=== PATIENT | male | born 1985 | race Two or more races ===

== ENCOUNTER 2021-08-27 06:49 | Inpatient (IN) | payer MEDICAID ==
[~2021-08-27] VITALS: Ht 170.2 cm; Wt 74.8 kg
--- NOTE | 2021-08-27 07:08 | NUR ---
PT IVONNE FROM [facility] C/O DIFFUSED ABDOMINAL PAIN X1 DAY -N/V/D. PT A/O, RR EVEN. PT CONNECTED TO MONITORS.
--- NOTE | 2021-08-27 07:09 | NUR ---
URINE SENT TO LAB
[2021-08-27 07:28] LABS: BASOPHILS % (AUTO) 0.2 % (0.0-2.0); EOSINOPHILS % (AUTO) 0.4 % (0.0-6.0); HEMATOCRIT 37 % (39-51); HEMOGLOBIN 12.4 g/dL (13.5-17.5); LYMPHOCYTES # (AUTO) 0.7 K/uL (0.8-4.8); LYMPHOCYTES % (AUTO) 12.9 % (20.0-44.0); MEAN CORPUSCULAR HGB CONC 34 g/dl (31.0-36.0); MEAN CORPUSCULAR VOLUME 93 fL (80-96); MONOCYTES # (AUTO) 0.3 K/uL (0.1-1.30); MONOCYTES % (AUTO) 5.9 % (2.0-12.0); NEUTROPHILS # (AUTO) 4.2 K/uL (1.8-8.9); NEUTROPHILS % (AUTO) 80.6 % (43.0-81.0); PLATELET COUNT (AUTO) 328 K/uL (150-450); RED BLOOD CELL COUNT(AUTO) 3.94 MIL/uL (4.5-6.0); WHITE BLOOD COUNT (AUTO) 5.2 K/uL (4.3-11.0)
[2021-08-27] MEDS ORDERED: IOHEXOL-300 100 ML VIAL IV ONE (07:29)
[2021-08-27] MEDS ORDERED: IV NS 0.9% 250 ML IV ONE (07:29)
[2021-08-27] MEDS ORDERED: CT SWABBABLE VALVE TRANS SET 1 EA INFUS.SET MC ONE (07:29)
[2021-08-27] MEDS ORDERED: MORPHINE SULFATE INJ 2 MG/ML DISP.SYRIN IV ONE (07:30)
[2021-08-27] MEDS ORDERED: IV NS 0.9% 1,000 ML BAG IV ONE (07:30)
[2021-08-27] MEDS ORDERED: MORPHINE SULFATE INJ 4 MG/ML DISP.SYRIN ONE (07:31)
[2021-08-27 07:33] LABS: CALCIUM, SERUM 8.6 mg/dL (8.5-10.1); CREATININE 0.7 mg/dL (0.6-1.3); POTASSIUM 3.7 mmol/L (3.5-5.1)
[2021-08-27 07:39] LABS: ALBUMIN 3.6 g/dL (3.4-5.0); BILIRUBIN,DIRECT 0.2 mg/dL (0.0-0.2); BILIRUBIN,TOTAL 0.8 mg/dL (0.2-1.0); TOTAL PROTEIN, SERUM 7.2 g/dL (6.4-8.2)
[2021-08-27 07:45] LABS: BILIRUBIN,URINE NEGATIVE (NEGATIVE); LEUKOCYTE ESTERASE ,URINE NEGATIVE (NEGATIVE); NITRITE, URINE NEGATIVE (NEGATIVE); PROTEIN,URINE NEGATIVE (NEGATIVE); UGLUCOSE NEGATIVE (NEGATIVE); UROBILINOGEN,URINE 0.2 EU/dL (0.2)
[2021-08-27 07:53] LABS: COLOR,URINE STRAW (YELLOW)
[2021-08-27 08:19] LABS: BACTERIA,URINE None seen /HPF (None Seen); RBC,URINE 0-2 /HPF (0-2); SQUAMOUS EPITHELIAL CELL,UR None Seen /HPF (None Seen); URINE AMORPHOUS PHOSPHATES Moderate /HPF (None Seen); WBC,URINE 0-2 /HPF (0-3)
--- NOTE | 2021-08-27 08:30 | NUR ---
CALLED DR. ANDRADE [phone] SOLIS.
--- NOTE | 2021-08-27 08:35 | NUR ---
MOVE SHEET SUBMITTED AND CALLED FOR MS BED.
--- NOTE | 2021-08-27 08:38 | NUR ---
AT BEDSIDE FOR EVAL.
--- NOTE | 2021-08-27 08:43 | NUR ---
COVID SWAB DONE AND SENT TO LAB
[2021-08-27] MEDS ORDERED: CEFTRIAXONE 1GM BAG (ER ONLY) 50 ML IV ONE (08:46)
[2021-08-27] MEDS ORDERED: METRONIDAZOLE 500MG/ NS 100ML 100 ML IV ONE (08:46)
--- NOTE | 2021-08-27 08:50 | NUR ---
NEGATIVE RAPID COVID TEST RESULT. CALL FROM LAB.
[2021-08-27] MEDS ORDERED: CEFTRIAXONE 1GM BAG (ER ONLY) 1 GM/50 ML PIGGYBACK IV ONE (09:00)
[2021-08-27] MEDS ORDERED: FLAGYL/NS RTU 500 MG/100 ML PIGGYBACK IV ONE (09:00)
--- NOTE | 2021-08-27 09:04 | NUR ---
[facility] CALLED [facility]NAGER PAGED.
--- NOTE | 2021-08-27 09:54 | NUR ---
GOT BED 320-2
--- NOTE | 2021-08-27 10:15 | NUR ---
CALLED [facility] AGAIN RHIA PAGED.
--- NOTE | 2021-08-27 10:56 | NUR ---
REPORT GIVEN TO PIEDAD BENNETT FOR MARIA D
[2021-08-27] MEDS ORDERED: ONDANSETRON HCL/PF 4 MG/2 ML VIAL IVP PRN (11:30)
[2021-08-27] MEDS ORDERED: MORPHINE SULFATE INJ 2 MG/ML DISP.SYRIN IV PRN (11:30)
[2021-08-27] MEDS ORDERED: PIPERACILLIN /TAZOBACTAM 4.5 G in IV D5W 50 ML IV SCH (12:00)
--- NOTE | 2021-08-27 12:00 | NUR ---
RN ADMITTING NOTES ADMITTED THIS 35 Y/O MALE PATIENT @ 1145 FROM EMERGENCY ROOM, TRANSPORTED VIA GURNEY BY 1 ER STAFF, WITH ADMITTING DIAGNOSIS OF POSSIBLE STUMP APPENDICITIS. PATIENT IS ALERT, A/O X4, VERBALLY RESPONSIVE, NO SIGNS OF ACUTE DISTRESS NOTED. STABLE ON ROOM AIR, BREATHING EVEN AND UNLABORED. WITH IV ACCESS ON LAC #18 G, INTACT AND PATENT. STILL WITH C/O ABDOMINAL PAIN. PATIENT ORIENTED TO ROOM. ROUTINE ADMISSION CARE PROVIDED. SAFETY MEASURES IN PLACE. BED IN LOWEST ;LOCKED POSITION, SR UP X2, CALL LIGHT PLACED WITHIN EASY REACH. WILL CONTINUE TO MONITOR.
[2021-08-27] MEDS: IV NS 0.9% 1,000 ML IV PRN (12:55)
[2021-08-27] MEDS: PIPERACILLIN /TAZOBACTAM 3.375 G in IV D5W 100 ML IV SCH ×2 (12:55→20:03)
[2021-08-27 16:30] VITALS: BP 125/85
--- NOTE | 2021-08-27 18:46 | NUR ---
RN CLOSING NOTES PATIENT IN BED, AWAKE, A/O X4. NO SIGNS OF ACUTE DISTRESS NOTED. REMAINS ON ROOM AIR, NO SOB NOTED. BREATHING EVEN AND UNLABORED. WITH IV ACCESS ON LAC #18G, INTACT AND PATENT. NS @ 125 ML/HR RUNNING, TOLERATING WELL. NO C/O PAIN AT THIS TIME. ON NPO STATUS. ALL NEEDS ATTENDED TO. SAFETY MEASURES MAINTAINED, BED IN LOWEST LOCKED POSITION, SR UP X2, CALL LIGHT PLACED WITHIN EASY REACH. WILL ENDORSE TO NEXT SHIFT FOR CONTINUITY OF CARE.
--- NOTE | 2021-08-27 19:30 | NUR ---
MS/RN OPENING NOTE RECEIVED PATIENT RESTING IN BED. AWAKE, ALERT AND ORIENTED X 4. ABLE TO MAKE NEEDS KNOWN. DENIES PAIN AT THIS TIME. CONTINUES ON ROOM AIR WITH NO S/SX OF RESPIRATORY DISTRESS NOTED. IV ACCESS TO LEFT AC #18G INTACT AND PATENT. CONTINUES ON IVF NS @ 125ML/HR. CONTINUES ON IV ABX. CONTINUES ON NPO STATUS. PATIENT IS AMBULATORY WITH STEADY GAIT. CALL LIGHT WITHIN REACH. ASPIRATION, FALL AND SAFETY PRECAUTIONS MAINTAINED. WILL CONTINUE TO MONITOR.
[2021-08-27 20:00] VITALS: BP 123/60
[2021-08-28] MEDS: PIPERACILLIN /TAZOBACTAM 3.375 G in IV D5W 100 ML IV SCH ×2 (03:33→11:27)
--- NOTE | 2021-08-28 06:10 | NUR ---
MS/RN CLOSING NOTE PATIENT CURRENTLY RESTING IN BED. AWAKE, ALERT AND ORIENTED X 4. ABLE TO MAKE NEEDS KNOWN. DENIES PAIN AT THIS TIME. CONTINUES ON ROOM AIR WITH NO S/SX OF RESPIRATORY DISTRESS NOTED. IV ACCESS TO LEFT AC #18G INTACT AND PATENT. CONTINUES ON IVF NS @ 125ML/HR. CONTINUES ON IV ABX. CONTINUES ON NPO STATUS. PATIENT IS AMBULATORY WITH STEADY GAIT. CALL LIGHT WITHIN REACH. ASPIRATION, FALL AND SAFETY PRECAUTIONS MAINTAINED. WILL ENDORSE PLAN OF CARE TO ONCOMING SHIFT.
[2021-08-28 06:23] LABS: BASOPHILS % (AUTO) 0.1 % (0.0-2.0); EOSINOPHILS % (AUTO) 0.8 % (0.0-6.0); HEMATOCRIT 39 % (39-51); HEMOGLOBIN 12.8 g/dL (13.5-17.5); LYMPHOCYTES # (AUTO) 0.9 K/uL (0.8-4.8); LYMPHOCYTES % (AUTO) 18.2 % (20.0-44.0); MEAN CORPUSCULAR HGB CONC 33 g/dl (31.0-36.0); MEAN CORPUSCULAR VOLUME 94 fL (80-96); MONOCYTES # (AUTO) 0.5 K/uL (0.1-1.30); MONOCYTES % (AUTO) 10.2 % (2.0-12.0); NEUTROPHILS # (AUTO) 3.3 K/uL (1.8-8.9); NEUTROPHILS % (AUTO) 70.7 % (43.0-81.0); PLATELET COUNT (AUTO) 342 K/uL (150-450); RED BLOOD CELL COUNT(AUTO) 4.11 MIL/uL (4.5-6.0); WHITE BLOOD COUNT (AUTO) 4.7 K/uL (4.3-11.0)
--- NOTE | 2021-08-28 07:48 | NUR ---
MS RN OPENING NOTE Patient in bed, asleep. A/O x 4. On room air, breathing evenly and unlabored. No SOB or s/s of distress noted. IV access on LAC #18G infusing NS at 125 ml/hr. NPO status maintained. Safety precautions in place: bed in low, locked position; sdierails up x 2; call light within reach. Will continue to monitor.
[2021-08-28] MEDS: IV NS 0.9% 1,000 ML IV PRN (08:54)
[2021-08-28 08:57] LABS: ALBUMIN 3.2 g/dL (3.4-5.0); CALCIUM, SERUM 8.6 mg/dL (8.5-10.1); CREATININE 0.9 mg/dL (0.6-1.3); MAGNESIUM 2.1 mg/dL (1.8-2.4); PHOSPHORUS 3.5 mg/dL (2.5-4.9); POTASSIUM 3.5 mmol/L (3.5-5.1); TOTAL PROTEIN, SERUM 6.8 g/dL (6.4-8.2)
[2021-08-28] MEDS ORDERED: PANTOPRAZOLE 40 MG VIAL IV SCH (09:00)
--- NOTE | 2021-08-28 12:00 | NUR ---
RN NOTE Patient's diet advanced from NPO to regular. Patient tolerating regular diet well.
--- NOTE | 2021-08-28 16:30 | NUR ---
DISCHARGE NOTE Received order for discharge. Patient is A/O x 4, able to lanie needs known. Stable on rooom air, breathing evenly and unlabored. No SOB or s/s of distress noted. Patient tolerating regular diet well. Denies any pain or discomfort at this time. Discharge instructions given to patient, verbalized understanding. All belongings accounted for, belonging sheet signed. IV access on LAC removed, catheter tip intact; pressure dressing applied, no signs of bleeding noted. ID band removed. Exitcare folder given to patient. Patient left in stable condition via private car with family.
== END 2021-08-28 16:45 | disposition home or self-care (01) | DRG 254 ==
LOC: ER 06:52 → MED 10:46
DX: K36 Other appendicitis (principal); E87.1 Hypo-osmolality and hyponatremia; Z20.822 Contact with and (suspected) exposure to COVID-19; K35.80 Unspecified acute appendicitis; N20.0 Calculus of kidney; K44.9 Diaphragmatic hernia without obstruction or gangrene
CPT/HCPCS: 36415; 80048-TC; 80053-TC; 80076-TC; 81001; 83690-TC; 83735-TC; 84100-TC; 85025-TC; C9113; C9803; G0378; J0696; J2270; J2543; J7030; J7050; J7060; Q9967